=== PATIENT | female | born 2000 | race Caucasian/White ===

== ENCOUNTER 2021-04-03 22:48 | Emergency (ER) | payer SELFPAY ==
[~2021-04-03] VITALS: Ht 152.4 cm; Wt 78.0 kg
[2021-04-03] MEDS ORDERED: PREDNISONE 20MG TABLET PO ONE (23:30)
[2021-04-03] MEDS ORDERED: DIPHENHYDRAMINE 25MG CAPSULE PO ONE (23:30)
[2021-04-03] MEDS ORDERED: FAMOTIDINE 20MG TABLET PO ONE (23:30)
[2021-04-04] MEDS ORDERED: P20 MT (00:58)
[2021-04-04] MEDS ORDERED: EPIN0.3P3 IM (00:58)
[2021-04-04] MEDS ORDERED: FAMO-135 MT (00:58)
[2021-04-04 01:07] VITALS: BP 138/90
== END 2021-04-04 01:08 | disposition home or self-care (01) ==
LOC: ER 22:48
DX: L50.9 Urticaria, unspecified (principal)
CPT/HCPCS: 99284; J7512; Q0163